=== PATIENT | male | born 1945 | race Caucasian/White ===

== ENCOUNTER → 2020-03-07 | Outpatient (CLI) | payer OTHER ==
[~2020-03-07] MED LIST: CHOL10003 PO; CYAN-27 PO; GLUC1TAB27 PO; HYDR25TA6 PO; LOSA50TA14 PO; Prevagen PO
[2020-03-07 10:30] LABS: BASOPHILS # (AUTO) 0.01 x10^3/uL (0-0.1); BASOPHILS % (AUTO) 0 % (0-1); EOSINOPHILS # (AUTO) 0.09 x10^3/uL (0-0.4); EOSINOPHILS % (AUTO) 2 % (1-7); LYMPHOCYTES # (AUTO) 1.23 x10^3/uL (1-3.4); LYMPHOCYTES % (AUTO) 22 % (22-44); MD NO; MEAN CORPUSCULAR HEMOGLOBIN 34.1 pg (27.5-34.5); MEAN CORPUSCULAR HGB CONC 33.9 g/dL (33.2-36.2); MEAN CORPUSCULAR VOLUME 100.6 fL (81-97); MEAN PLATELET VOLUME 7.5 fL (7.4-10.4); MONOCYTES # (AUTO) 0.46 x10^3/uL (0.2-0.8); MONOCYTES % (AUTO) 8 % (2-9); NEUTROPHILS # (AUTO) 3.72 x10^3/uL (1.8-6.8); NEUTROPHILS % (AUTO) 68 % (42-75); PLATELET COUNT 226 x10^3/uL (130-400); RED BLOOD COUNT 4.47 x10^6/uL (4.38-5.82)
[2020-03-07 10:31] LABS: MICROSCOPIC NOT IND
[2020-03-07 10:39] LABS: PROTHROMBIN TIME 10.3 Seconds (9.6-11.5)
[2020-03-07 10:41] LABS: ALBUMIN 4.6 g/dL (3.4-5.0); ANION GAP 6 mmol/L (5-15); CALCIUM 9.3 mg/dL (8.5-10.1); CHLORIDE 105 mmol/L (98-107)
[2020-03-07 10:44] LABS: ALANINE AMINOTRANSFERASE 58 U/L (12-78); ALKALINE PHOSPHATASE 79 U/L (45-117); CREATININE 0.95 mg/dL (0.7-1.3); TOTAL PROTEIN 7.9 g/dL (6.4-8.2)
== END | disposition home or self-care (01) ==
LOC: STAR 09:15
PROVIDERS: ATTEND Neurological Surgery
DX: Z01.811 Encounter for preprocedural respiratory examination (principal); Z01.810 Encounter for preprocedural cardiovascular examination; R94.31 Abnormal electrocardiogram [ECG] [EKG]; M48.061 Spinal stenosis, lumbar region without neurogenic claudication; M43.06 Spondylolysis, lumbar region; M54.17 Radiculopathy, lumbosacral region; R79.1 Abnormal coagulation profile; R82.90 Unspecified abnormal findings in urine; E65 Localized adiposity
CPT/HCPCS: 36415; 71046; 80053; 81003; 85025; 85610; 85730; 93005

== ENCOUNTER → 2020-03-10 | Outpatient (CLI) | payer OTHER | END | disposition home or self-care (01) | LOC: STAR 08:19 | PROVIDERS: ATTEND Anesthesiology | DX: Z01.818 Encounter for other preprocedural examination (principal); Z11.59 Encounter for screening for other viral diseases | CPT/HCPCS: 36415; 87635 ==

== ENCOUNTER → 2020-03-13 | Outpatient (CLI) | payer OTHER | END | disposition home or self-care (01) | LOC: RAD 12:46 | PROVIDERS: ATTEND Neurological Surgery | DX: M48.061 Spinal stenosis, lumbar region without neurogenic claudication (principal); M25.78 Osteophyte, vertebrae | CPT/HCPCS: 72131 ==

== ENCOUNTER 2020-04-24 09:00 | Observation (INO) | payer OTHER ==
[~2020-04-24] VITALS: Ht 185.4 cm; Wt 81.3 kg
[2020-04-24 09:00] VITALS: BP 143/87
[~2020-04-24 09:00] MED LIST changes: +HYDR-3240 PO; +METH750T2 PO
[2020-04-24 09:21] LABS: BASOPHILS % (AUTO) 0 % (0-1); EOSINOPHILS % (AUTO) 1 % (1-7); LYMPHOCYTES % (AUTO) 23 % (22-44); MEAN CORPUSCULAR HEMOGLOBIN 33.4 pg (27.5-34.5); MEAN CORPUSCULAR HGB CONC 33.9 g/dL (33.2-36.2); MEAN PLATELET VOLUME 7.1 fL (7.4-10.4); MONOCYTES % (AUTO) 9 % (2-9); NEUTROPHILS % (AUTO) 68 % (42-75); PLATELET COUNT 270 x10^3/uL (130-400); RED BLOOD COUNT 4.49 x10^6/uL (4.38-5.82); RED CELL DISTRIBUTION WIDTH 12.1 % (9.4-14.8)
[2020-04-24 09:22] LABS: MD NO
[2020-04-24 09:25] LABS: MICROSCOPIC NOT IND
[2020-04-24 09:26] LABS: PROTHROMBIN TIME 10.3 Seconds (9.6-11.5)
[2020-04-24 09:29] LABS: ALANINE AMINOTRANSFERASE 41 U/L (12-78); ALBUMIN 4.3 g/dL (3.4-5.0); ANION GAP 4 mmol/L (5-15); CALCIUM 9.7 mg/dL (8.5-10.1); CHLORIDE 106 mmol/L (98-107)
[2020-04-24 09:32] LABS: ALKALINE PHOSPHATASE 104 U/L (45-117); BILIRUBIN,TOTAL 0.7 mg/dL (0.2-1.0); CREATININE 0.88 mg/dL (0.7-1.3); TOTAL PROTEIN 8.1 g/dL (6.4-8.2)
[2020-04-26] MEDS ORDERED: BUPIVACAINE/PF 0.5% ONE (06:16)
[2020-04-26] MEDS ORDERED: BACITRACIN 50,000 UNIT ONE (06:17)
[2020-04-26] MEDS ORDERED: VANCOMYCIN 1,000 MG ONE (06:17)
[2020-04-26] MEDS ORDERED: EPINEPHRINE 1 MG/ML, 1ML ONE (06:17)
[2020-04-26 08:14] VITALS: BP 143/87
[2020-04-26] MEDS ORDERED: LACTATED RINGERS 1,000 ML IV SCH (08:30)
[2020-04-26] MEDS ORDERED: CHLORHEXIDINE 15 ML UDC MM ONE (08:30)
[2020-04-26] MEDS ORDERED: FENTANYL PF 250 MCG/5ML ONE (09:12)
[2020-04-26] MEDS ORDERED: MIDAZOLAM 1 MG/ML, 2ML ONE (09:55)
[2020-04-26] MEDS ORDERED: ROCURONIUM 10 MG/ML,10ML ONE (10:00)
[2020-04-26] MEDS ORDERED: SUGAMMADEX 200 MG/2 ML IVPush ONE (10:00)
[2020-04-26] MEDS ORDERED: GLYCOPYRROLATE 0.2MG/1ML, 5ML ONE (10:43)
[2020-04-26] MEDS ORDERED: DEXAMETHASONE 4 MG/ML, 1ML ONE (10:43)
[2020-04-26] MEDS ORDERED: NEOSTIGMINE 1 MG/ML, 10ML ONE (10:43)
[2020-04-26] MEDS ORDERED: PROPOFOL 10 MG/ML, 20ML ONE (10:43)
[2020-04-26] MEDS ORDERED: CEFAZOLIN 1,000 MG ONE (10:43)
[2020-04-26] MEDS ORDERED: ONDANSETRON 2MG/ML, 2ML ONE (10:43)
[2020-04-26] MEDS ORDERED: PHARMACY MAY ADJ FOR RENAL FX MC PRN (11:00)
[2020-04-26] MEDS ORDERED: DIPHENHYDRAMINE 50 MG CAPSULE PO PRN (11:00)
[2020-04-26] MEDS ORDERED: LABETALOL 5MG/ML, 20ML IVPush PRN (11:00)
[2020-04-26] MEDS ORDERED: ONDANSETRON 2MG/ML, 2ML IVPush PRN (11:00)
[2020-04-26] MEDS ORDERED: SENNA/DOCUSATE TABLET PO PRN (11:00)
[2020-04-26] MEDS ORDERED: METHOCARBAMOL 1,000 MG in DEXTROSE 5% 100 ML IV ONE (11:00)
[2020-04-26] MEDS ORDERED: PROMETHAZINE 25 MG/ML, 1ML IM PRN (11:00)
[2020-04-26] MEDS ORDERED: morphine SULFATE 10 MG/ML, 1ML IVPush PRN (11:00)
[2020-04-26] MEDS ORDERED: CEFAZOLIN PMX 1GM/50ML 50 ML IVPB SCH (11:00)
[2020-04-26] MEDS ORDERED: MAGNESIUM HYDROXIDE 8%, 30ML UDC PO PRN (11:00)
[2020-04-26] MEDS ORDERED: HYDROcodone/APAP 10/325 MG TABLET PO PRN (11:00)
[2020-04-26] MEDS ORDERED: DIPHENHYDRAMINE 50 MG/ML, 1ML IVPush PRN (11:00)
[2020-04-26] MEDS ORDERED: NS + 20MEQ KCL 1,000 ML IV SCH (11:00)
[2020-04-26] MEDS ORDERED: DIPHENHYDRAMINE 50 MG/ML, 1ML IM PRN (11:00)
[2020-04-26] MEDS ORDERED: HYDROcodone/APAP 5/325 TABLET PO PRN (11:00)
[2020-04-26] MEDS ORDERED: FENTANYL PF 100 MCG/2ML ONE (11:04)
[2020-04-26] MEDS ORDERED: OXYcodone 5 MG/5 ML ORAL.SOL UDC ONE (11:05)
[2020-04-26] MEDS: FENTANYL PF 100 MCG/2ML IV PRN ×2 (11:06→11:12)
[2020-04-26] MEDS ORDERED: OXYcodone 5 MG/5 ML ORAL.SOL UDC PO PRN (11:30)
[2020-04-27] MEDS ORDERED: LOSARTAN 50MG TABLET PO SCH (09:00)
[2020-04-27] MEDS ORDERED: HYDROCHLOROTHIAZIDE 25 MG TABLET PO SCH (09:00)
[2020-04-27] MEDS ORDERED: CHOLECALCIFEROL 1,000 UNIT TABLET PO SCH (09:00)
[2020-04-27] MEDS ORDERED: CYANOCOBALAMIN 1,000 MCG TABLET PO SCH (09:00)
[2020-04-28] MEDS ORDERED: METHOCARBAMOL 750 MG TABLET PO SCH (19:00)
== END 2020-04-26 14:23 | disposition home or self-care (01) ==
LOC: ORIP 04-26 07:25 → INTOOBSV 04-26 07:25 → EDSTATUS 04-26 15:30
PROVIDERS: ADMIT Neurological Surgery; ATTEND Neurological Surgery
DX: M54.16 Radiculopathy, lumbar region (principal); Z20.828 Contact with and (suspected) exposure to other viral communicable diseases; M96.842 Postprocedural seroma of a musculoskeletal structure following a musculoskeletal system procedure; I10 Essential (primary) hypertension; Z79.899 Other long term (current) drug therapy
CPT/HCPCS: 36415; 63042; 80053; 81003; 85025; 85610; 85730; 87635; G0378; J0171; J0690; J1100; J2250; J2405; J2704; J2710; J3010; J3370; J7120; S0020

== ENCOUNTER → 2020-07-25 | Outpatient (CLI) | payer OTHER ==
[2020-07-25 10:19] LABS: BASOPHILS % (AUTO) 0 % (0-1); EOSINOPHILS % (AUTO) 2 % (1-7); LYMPHOCYTES % (AUTO) 19 % (22-44); MEAN CORPUSCULAR HEMOGLOBIN 33.9 pg (27.5-34.5); MEAN CORPUSCULAR HGB CONC 34.6 g/dL (33.2-36.2); MEAN PLATELET VOLUME 8.2 fL (7.4-10.4); MONOCYTES % (AUTO) 8 % (2-9); NEUTROPHILS % (AUTO) 72 % (42-75); PLATELET COUNT 225 x10^3/uL (130-400); RED BLOOD COUNT 4.51 x10^6/uL (4.38-5.82); RED CELL DISTRIBUTION WIDTH 12.4 % (9.4-14.8)
[2020-07-25 10:23] LABS: MD NO
[2020-07-25 10:29] LABS: ALANINE AMINOTRANSFERASE 66 U/L (12-78); ALBUMIN 4.3 g/dL (3.4-5.0); ANION GAP 5 mmol/L (5-15); CALCIUM 9.3 mg/dL (8.5-10.1); CHLORIDE 109 mmol/L (98-107); INTERNATIONAL NORMALIZED RATIO 0.98 (0.93-1.1); PROTHROMBIN TIME 10.4 Seconds (9.6-11.5)
[2020-07-25 10:31] LABS: ALKALINE PHOSPHATASE 83 U/L (45-117); BILIRUBIN,TOTAL 0.9 mg/dL (0.2-1.0); TOTAL PROTEIN 7.7 g/dL (6.4-8.2)
== END | disposition home or self-care (01) ==
LOC: STAR 07:55
PROVIDERS: ATTEND Orthopaedic Surgery
DX: Z01.812 Encounter for preprocedural laboratory examination (principal); Z20.828 Contact with and (suspected) exposure to other viral communicable diseases; M16.11 Unilateral primary osteoarthritis, right hip; R94.31 Abnormal electrocardiogram [ECG] [EKG]
CPT/HCPCS: 80053; 83036; 85025; 85610; 85730; 87081; 87635; 87806; 93005; G0475